=== PATIENT | male | born 1945 | race Caucasian/White ===

== ENCOUNTER 2017-11-20 16:05 | Observation (INO) | payer OTHER ==
[~2017-11-20] VITALS: Ht 185.4 cm; Wt 81.6 kg
[~2017-11-20 16:05] MED LIST: VICODIN 500 MG-1 TAB PO
[2017-11-20 16:34] LABS: ABSOLUTE BASOPHIL COUNT 0 /CUMM (0.0-0.2); ABSOLUTE EOSINOPHIL COUNT 0.1 /CUMM (0.0-0.7); ABSOLUTE GRANULOCYTE CT 8.3 /CUMM (1.4-6.5); ABSOLUTE LYMPH COUNT 2.7 /CUMM (1.2-3.4); ABSOLUTE MONOCYTE COUNT 0.8 /CUMM (0.10-0.60); BASOPHIL % 0.2 % (0.0-2.0); EOSINOPHIL % 0.8 % (0-5); GRANULOCYTE % 69.9 % (42.2-75.2); HEMATOCRIT 40.3 % (42-52); MEAN CORPUSCULAR HGB CONC 31.8 G/DL (33.0-37.0); MEAN CORPUSCULAR VOLUME 87.8 FL (80.0-94.0); MEAN PLATELET VOLUME 10.2 FL (7.4-10.4); PLATELET COUNT 183 /CUMM (130-400); RBC DISTRIBUTION WIDTH 15.6 % (11.5-14.5); RED BLOOD CELL CT 4.59 /CUMM (4.70-6.10); WHITE BLOOD CELL COUNT 11.8 /CUMM (4.8-10.8)
--- NOTE | 2017-11-20 17:12 | ED GENERAL ADULT ---
History of Present Illness General Chief Complaint: Cardiopulmonary Resuscitation Stated Complaint: BIBA FOR CARDIAC ARREST Source: family, old records, EMS Exam Limitations: unable to give history Vital Signs & Intake/Output Vital Signs & Intake/Output Vital Signs Date Time Temp Pulse Resp B/P B/P Pulse O2 O2 Flow FiO2 Mean Ox Delivery Rate 11/21 0800 Nasal 5.0L Cannula 11/21 0647 99.5 64 12 120/60 93 Nasal 5.0L Cannula 11/21 0058 97.2 94 20 120/70 93 Nasal 5.0L Cannula 11/20 2212 90 150/76 98 Nasal 5.0L Cannula 11/20 1635 Ventilator 11/20 1631 93.6 77 18 98/57 97 Ventilator 11/20 1620 100 11/20 1618 64 16 62/00 99 Ventilator 100% ED Intake and Output 11/21 0000 11/20 1200 Intake Total Output Total Balance Patient 180 lb Weight Weight Estimated Measurement Method Triage Note: PT BIBA CARDIAC ARREST WITTNESSED, PT DOWN FOR 15MINS ORIGINALLY IN PEA, PULSES BACK IN WIDE COMPLEX. BP 134/72 FOR EMS. PT INTUBATED ON SCENE, NO MEDS GIVEN. TOTAL 7 EPI GIVEN. PULPIS FIXED AND DILATED UPON ARRIVAL. Triage Nurses Notes Reviewed? yes HPI: 72M PMH end-stage CHF, per reports was walking his dog when he collapsed to the ground and shortly thereafter became unresponsive. CPR was started by bystanders at the scene and taken over by EMS. Found initially in PEA arrest, given CPR and epinephrine x7 with ROSC, intubated at the scene. En route was unresponsive. Upon arrival to ER, patient was still unresponsive, BP 120/60, HR 60's. On exam his pupils were fixed and dilated, no spontaneous movements, no response to pain. I spoke to patient's on the phone, who said that the patient was adamantly against CPR, intubation, central lines, or any heroic life saving treatments. His said that he told bystanders not to call 911 before he became unresponsive. His two daughters are at the bedside and have confirmed that the patient is DNR/DNI and adamantly opposed to further measures that would extend the dying process. They wish for extubation at this time. agrees. (Julianna TORRES,Emani) Allergies Coded Allergies: NO KNOWN ALLERGIES (11/20/17) Reconcile Medications Acetaminophen/Hydrocodone Bi (Vicodin 500 MG-5 MG) 1 TAB TAB 1 TAB PO Q6P PRN PAIN (Milo TORRES,[facility]) Past History Travel History Traveled to [place] past 21 day No Medical History Any Pertinent Medical History? see below for history Surgical History Surgical History: non-contributory Psychosocial History What is your primary language Lao Tobacco Use: Never used Family History Hx Contributory? No (Emani Levine MD) Review of Systems Review of Systems Constitutional: Reports: no symptoms. EENTM: Reports: no symptoms. Respiratory: Reports: no symptoms. Cardiovascular: Reports: no symptoms. GI: Reports: no symptoms. Genitourinary: Reports: no symptoms. Musculoskeletal: Reports: no symptoms. Skin: Reports: no symptoms. Neurological/Psychological: Reports: no symptoms. Hematologic/Endocrine: Reports: no symptoms. Immunologic/Allergic: Reports: no symptoms. All Other Systems: Reviewed and Negative (Emani Levine MD) Physical Exam Physical Exam General Appearance: intubated, severe distress, unresponsive Head: atraumatic, normal appearance Eyes: Bilateral: other (fixed and dilated). Ears, Nose, Throat: moist mucus membranes Neck: normal inspection Respiratory: bilateral crackles Cardiovascular: regular rate/rhythm Peripheral Pulses: 1+ femoral (R), 1+ femoral (L) Gastrointestinal: soft Back: normal inspection Extremities: normal inspection, slow capillary refill Neurologic/Psych: no gag reflex, absent corneal reflex, does not withdraw to pain, no spontaneous movement, eyes fixed and dilated Skin: diffuse ecchymoses Core Measures ACS in differential dx? Yes CVA/TIA Diagnosis: No Sepsis Present: No Sepsis Focused Exam Completed? No (Emani Levine MD) Progress Differential Diagnoses I considered the following diagnoses in my evaluation of the patient: Plan of Care: Orders Procedure Date/time Status Regular Diet 11/21 B Active Skin Integrity Protocol 11/21 0100 Active Vital Signs 11/21 52 Active Teach/Educate 11/21 52 Active Pain Treatment and Response 11/21 52 Active Nutritional Intake, Monitor 11/21 52 Active Isolation 11/21 52 Active Intake & Output 11/21 52 Active Patient Care Conference 11/21 52 Active Activity/Ambulation 11/21 52 Active Pathway - chart 11/21 2323 Active House Staff 11/21 2323 Active Patient Data 08/18 2324 Active Code Status 11/20 2324 Active Patient Data 11/20 2244 Active OXYGEN SETUP (GEN) 11/20 222 Active Saline Lock 11/[address] in observation 11/20 222 Active Vital Signs 11/20 222 Active Activity/Ambulation 11/20 222 Active Code Status 11/20 2225 Complete Intake & Output 11/20 1634 Active TROPONIN LEVEL 11/20 1614 Complete MAGNESIUM 11/20 161 Complete LACTIC ACID 11/20 161 Complete COMPREHENSIVE METABOLIC PANEL 11/20 161 Complete CBC WITHOUT DIFFERENTIAL 11/20 1614 Complete EKG 11/20 1614 Active TRC EVALUATION (GEN) 11/20 UNK Active OXYGEN SETUP (GEN) 11/20 UNK Active VTE Mechanical Prophylaxis 11/20 UNK Active Vital Signs 11/20 UNK Complete Nursing Misc 11/20 UNK Active Intake & Output 11/20 UNK Complete Activity/Ambulation 11/20 UNK Complete Current Medications Sig/Jag Start time Last Medication Dose Stop Time Status Admin Scopolamine HBr 1 PAT Q72 11/23 0900 AC 11/21 (Trans Derm Scop) 0114 Hydromorphone HCl 2 MG Q4P PRN 11/21 0145 AC (Dilaudid) Glycopyrrolate 400 MCG Q4P PRN 11/21 0100 AC 11/21 (Robinul 0.2MG Per 0607 Ml (1ML Malinda) Inj) Lorazepam 0.5 MG Q6 11/20 2359 AC 11/21 (Ativan) 0607 Acetaminophen 650 MG Q6P PRN 11/20 2330 CAN (Tylenol) Hydromorphone HCl 0 Q2P PRN 11/20 2330 AC 11/21 (Dilaudid) 0325 Morphine Sulfate 90 MG Q24H 11/20 1700 CAN (Morphine Drip) N/A 1 UNIT (No Carrier) Morphine Sulfate 100 MG Q24H 11/20 1645 AC 11/20 (Morphine Drip) 1711 Dextrose/Water 100 ML (Dextrose 5%) Laboratory Tests 11/20/17 1914: Lactic Acid Cancelled 11/20/17 1621: Anion Gap 23 H, Estimated GFR 24 L, BUN/Creatinine Ratio 8.5, Glucose 318 H, Lactic Acid 12.9 H, Calcium 8.9, Magnesium 2.0, Total Bilirubin 0.6, AST 92 H, ALT 91 H, Alkaline Phosphatase 88, Troponin I 0.03, Total Protein 6.0 L, Albumin 3.5, Globulin 2.5, Albumin/Globulin Ratio 1.4, CBC w Diff NO MAN DIFF REQ, RBC 4.59 L, MCV 87.8, MCH 28.0, MCHC 31.8 L, RDW 15.6 H, MPV 10.2, Gran % 69.9, Lymphocytes % 22.5, Monocytes % 6.6, Eosinophils % 0.8, Basophils % 0.2, Absolute Granulocytes 8.3 H, Absolute Lymphocytes 2.7, Absolute Monocytes 0.8 H, Absolute Eosinophils 0.1, Absolute Basophils 0 Initial ED EKG: normal sinus rhythm, RBBB, no ST T wave changes (Emani Levine MD) Differential Diagnoses I considered the following diagnoses in my evaluation of the patient: Comments: 11/20 1899 s/o . The patient is critically sick. The disposition per . The patient is comfort measures only. 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 (Freddie Abraham MD) Departure Departure Referrals: Devaughn Cano MD (PCP/Family) Departure Forms: General Discharge Information (Emani Levine MD) Departure Clinical Impression Primary Impression: Cardiac arrest Secondary Impressions: Acute respiratory failure with hypoxemia (Jeremy Pedraza MD) Departure Time of Disposition: 2242 Disposition: STILL A PATIENT Condition: Critical Observation Note Spoke With: Uli Bland MD Physician Advisor Notified: JIM OSUNA DO Place Patient In: Non-ED OBS Care Area Rationale for Observation: My rational for observation is as follows end-of-life care comfort measures only. (Freddie Abraham MD) Critical Care Note Critical Care Note Critical Care Time: non-applicable (Freddie Abraham MD) ED Attending Observation Initial Observation Note: I have seen and personally examined MICHAEL FONSECA on 11/20/17 at 1915. I agree with the current emergency department documentation. The disposition (admission or discharge) is uncertain at this time, he needs a period of observation for the following reason(s): The ED Nurse caring for this patient has been personally informed as to what the patient is being observed for. (Jeremy Pedraza MD)
--- NOTE | 2017-11-20 23:32 | History & Physical ---
Sang Ortiz 11/20/17 2326: General Information and HPI MD Statement: I have seen and personally examined MICHAEL NUGENT and documented this H&P. The patient is a 72 year old M who presented with a patient stated chief complaint of S/P CPR Source of Information: family Exam Limitations: clinical condition History of Present Illness: This is a 72-year-old male with past medical history significant for end-stage CHF, defibrillator, diabetes mellitus, depression, anxiety, chronic kidney disease was brought in by ambulance status post CPR. Patient is completely unresponsive during my encounter. All the family members were at bedside, provided history. As per reports he was walking with his dog when he collapsed to the ground and shortly thereafter became unresponsive. CPR was started by bystanders at the scene and taken over by EMS. Found initially in PEA arrest, given CPR and epinephrine x7 with ROSC, intubated at the scene. En route was unresponsive. Upon arrival to ER, patient was still unresponsive, BP 120/60, HR 60's. On exam his pupils were fixed and dilated, no spontaneous movements, no response to pain. As per and family members patient was adamantly against CPR, intubation, central lines, or any heroic life saving treatments. His said that he told bystanders not to call 911 before he became unresponsive. His two daughters are at the bedside and have confirmed that the patient is DNR/DNI and adamantly opposed to further measures that would extend the dying process like intubation, CPR, heroic measures, vasopressors. Based on and family choice he was extubated in the emergency room. Family members and opted for comfort care and Willing to choose hospice if he remains alive. Allergies/Medications Allergies: Coded Allergies: NO KNOWN ALLERGIES (11/20/17) Home Med list Acetaminophen/Hydrocodone Bi (Vicodin 500 MG-5 MG) 1 TAB TAB 1 TAB PO Q6P PRN PAIN Compliance With Home Meds: UNKNOWN Past History Travel History Traveled to [place] past 21 day No Medical History Cardiovascular: CHF Endocrine: diabetes Surgical History Surgical History: non-contributory Past Family/Social History Psychosocial History Smoking Status: Former Smoker ETOH Use: denies use Illicit Drug Use: denies illicit drug use Review of Systems Review of Systems Constitutional: Reports: see HPI. Comments UNOBTAINABLE GIVEN HIS CLINICAL CONDITION Exam & Diagnostic Data Last 24 Hrs of Vital Signs/I&O Unobtainable given his clinical condition Vital Signs Date Time Temp Pulse Resp B/P B/P Pulse O2 O2 Flow FiO2 Mean Ox Delivery Rate 11/20 2212 90 150/76 98 Nasal 5.0L Cannula 11/20 1635 Ventilator 11/20 1631 93.6 77 18 98/57 97 Ventilator 11/20 1618 64 16 62/00 99 Ventilator 100% Physical Exam General Appearance Severe Distress Skin Temp/Moisture Exam: Cool/Dry Sepsis Skin Exam (color): Cyanotic HEENT Atraumatic, PUPIL FIXED AND DILATED Neck Supple Lymphatic Cervical nl Cardiovascular Normal S1, Normal S2 Lungs CRACKLES Abdomen Normal Bowel Sounds Last 24 Hrs of Labs/Art: Laboratory Tests 11/20/17 1914: Lactic Acid Cancelled 11/20/17 162: Anion Gap 23 H, Estimated GFR 24 L, BUN/Creatinine Ratio 8.5, Glucose 318 H, Lactic Acid 12.9 H, Calcium 8.9, Magnesium 2.0, Total Bilirubin 0.6, AST 92 H, ALT 91 H, Alkaline Phosphatase 88, Troponin I 0.03, Total Protein 6.0 L, Albumin 3.5, Globulin 2.5, Albumin/Globulin Ratio 1.4, CBC w Diff NO MAN DIFF REQ, RBC 4.59 L, MCV 87.8, MCH 28.0, MCHC 31.8 L, RDW 15.6 H, MPV 10.2, Gran % 69.9, Lymphocytes % 22.5, Monocytes % 6.6, Eosinophils % 0.8, Basophils % 0.2, Absolute Granulocytes 8.3 H, Absolute Lymphocytes 2.7, Absolute Monocytes 0.8 H, Absolute Eosinophils 0.1, Absolute Basophils 0 Assessment/Plan Assessment: This is a 72-year-old male with past medical history significant for end-stage CHF, defibrillator, diabetes mellitus, depression, anxiety, chronic kidney disease was brought in by ambulance status post CPR. Patient is completely unresponsive. All the family members were at bedside, provided history. Vitals hypothermia, heart rate 90, respiratory rate 18, blood pressure 62/00, 99, on 6 L nasal cannula Labs WBC 11.8, hemoglobin 12 and hematocrit 40, platelets 183 Sodium 137, potassium 4.4, BUN 22 and creatinine 2.6 Bicarb 18 and anion gap 23 Lactic acid 12.9 LFTs 92, 91 s/p cpr As per and family members patient was adamantly against CPR, intubation, central lines, or any heroic life saving treatments. His said that he told bystanders not to call 911 before he became unresponsive. His two daughters are at the bedside and have confirmed that the patient is DNR/DNI and adamantly opposed to further measures that would extend the dying process like intubation, CPR, heroic measures, vasopressors. Based on and family choice he was extubated in the emergency room. Family members and opted for comfort care and Willing to choose hospice if he remains alive. * Comfort measures only * IV Dilaudid every 2 hours as needed for pain * IV Ativan 0.5 every 4 hours for agitation * Glycopyrrolate for oral secretions as needed * Hospice evaluation in the a.m. Other conditions Acute hypoxic respiratory failure and hypoxemia Hypothermia Leukocytosis Metabolic acidosis with anion gap Lactic acidosis Acute kidney injury on CKD Transaminitis First-degree heart block End-stage CHF/ICD Diabetes mellitus As Ranked By This Provider Problem List: 1. Acute respiratory failure with hypoxemia 2. Cardiac arrest Core Measures/Misc (12/20) Acute Coronary Syndrome ACS Diagnosis: No Congestive Heart Failure Congestive Heart Failure Diagnosis No Cerebrovascular Accident CVA/TIA Diagnosis: No VTE (View Protocol) VTE Risk Factors Acute Medical Illness No Mechanical VTE Prophylaxis d/t Medical Contraindication No VTE Pharm Prophylaxis d/t Medical Contraindication Sepsis (View protocol) Sepsis Present: Yes If YES complete Sepsis Event Note If YES complete Sepsis Event Note Edwina TORRESTacoma 11/21/17 0315: Core Measures/Misc (12/20) Sepsis (View protocol) If YES complete Sepsis Event Note If YES complete Sepsis Event Note Attending MD Review Statement Attending Statement Attending MD Statement: examined this patient, discuss w/resident/PA/PLANT CULTURE MANAGER, agreed w/resident/PA/PLANT CULTURE MANAGER, discussed with family, reviewed EMR data (avail) Attending Assessment/Plan: This patient is a 72-year-old male with a significant past medical history for end-stage CHF, defibrillator, diabetes mellitus, depression, anxiety, chronic kidney disease was brought in by ambulance status post CPR. Patient is completely unresponsive. He was walking with his dog when he collapsed to the ground and shortly thereafter became unresponsive. CPR was started by bystanders at the scene and taken over by EMS. Found initially in PEA arrest, given CPR and epinephrine x7 with ROSC, intubated at the scene. Upon arrival to ER, patient was still unresponsive, BP 120/60, HR 60's. On exam his pupils were fixed and dilated, no spontaneous movements, no response to pain. As per and family members patient was adamantly against CPR, intubation, central lines, or any heroic life saving treatments. The patient is DNR/DNI and per his wishes will be placed on comfort measures observation and transitioned to hospice in the morning.
[2017-11-21 00:58] VITALS: BP 120/70
[2017-11-21 06:47] VITALS: BP 120/60
--- NOTE | 2017-11-21 08:22 | PN- Housestaff ---
See Addendum Subjective Follow-up For: Cardiac arrest Subjective: Patient is comfort care. He is resting comfortably and is surrounded by family. He developed a fevr and was given Tylenol suppository. Review of Systems Constitutional: Reports: see HPI. Objective Last 24 Hrs of Vital Signs/I&O Vital Signs Date Time Temp Pulse Resp B/P B/P Pulse O2 O2 Flow FiO2 Mean Ox Delivery Rate 11/21 1248 102.0 11/21 1214 102.0 11/21 0800 Nasal 5.0L Cannula 11/21 0647 99.5 64 12 120/60 93 Nasal 5.0L Cannula 11/21 0058 97.2 94 20 120/70 93 Nasal 5.0L Cannula 11/20 2212 90 150/76 98 Nasal 5.0L Cannula 11/20 1635 Ventilator 11/20 1631 93.6 77 18 98/57 97 Ventilator 11/20 1620 100 11/20 1618 64 16 62/00 99 Ventilator 100% Intake & Output 11/21 1600 11/21 0800 11/21 0000 Intake Total 100 Output Total Balance 100 Intake, IV 100 Patient 180 lb 180 lb Weight Weight Estimated Measurement Method Physical Exam General Appearance: Severe Distress Skin Temp/Moisture Exam: Cool/Dry HEENT: pupils fixed and dilated Cardiovascular: Regular Rate, Normal S1, Normal S2 Lungs: b/l crackles Abdomen: Normal Bowel Sounds Assessment/Plan Assessment: This is a 72-year-old male with past medical history significant for end-stage CHF, defibrillator, diabetes mellitus, depression, anxiety, chronic kidney disease was brought in by ambulance status post CPR. Patient is completely unresponsive. All the family members were at bedside, provided history. Temp: 102, BP: 120/60, RR:12 on 5L oxygen, Pulse:64 As per and family members patient was adamantly against CPR, intubation, central lines, or any heroic life saving treatments. His said that he told bystanders not to call 911 before he became unresponsive. His two daughters are at the bedside and have confirmed that the patient is DNR/DNI and adamantly opposed to further measures that would extend the dying process like intubation, CPR, heroic measures, vasopressors. Based on and family choice he was extubated in the emergency room. Family members and opted for comfort care and Willing to choose hospice if he remains alive. * Comfort measures only * IV Dilaudid every 2 hours as needed for pain * IV Ativan 0.5 every 4 hours for agitation * Glycopyrrolate for oral secretions as needed * Hospice evaluation Problem List: 1. Cardiac arrest 2. Acute respiratory failure with hypoxemia Pain Ratin Pain Location: na Pain Goal: Remain pain free Pain Plan: pathway [facility] Labs & Rationales: na
== END 2017-11-22 01:20 | disposition expired ==
LOC: ERH → ERHI 22:25 → 2NA 22:25 → EDBEDREQ 22:56 → ENRESERV 23:03 → CANRESERV 23:03 → ENRESERV 23:22 → 2NA 23:59
PROVIDERS: Internal Medicine
DX: J96.01 Acute respiratory failure with hypoxia (principal); Z51.5 Encounter for palliative care; D72.829 Elevated white blood cell count, unspecified; E87.4 Mixed disorder of acid-base balance; N17.9 Acute kidney failure, unspecified; N18.9 Chronic kidney disease, unspecified; R74.0 Nonspecific elevation of levels of transaminase and lactic acid dehydrogenase [LDH]; I44.0 Atrioventricular block, first degree; I50.9 Heart failure, unspecified; E11.9 Type 2 diabetes mellitus without complications; F32.9 Major depressive disorder, single episode, unspecified; F41.9 Anxiety disorder, unspecified; Z87.891 Personal history of nicotine dependence
CPT/HCPCS: 1328; 1342; 1344; 1387; 1748; 94799; 96374; 96375; 96376; G0378; J2270; J7040